=== PATIENT | female | born 1955 | race Caucasian/White ===

== ENCOUNTER → 2016-10-27 | Outpatient (CLI) | payer OTHER ==
[~2016-10-27] VITALS: Ht 172.7 cm; Wt 97.5 kg
[~2016-10-27] MED LIST: ASPIR 8181 M1 PO; CALCIUM 500 +1 EAC5 PO; FISH OIL 1,001000 M2 PO; LEVOTHYROXINE0.05 MG PO; LIPITOR 20 MG T20 M1 PO; LISINOPRIL10 MG PO; VITAMIN E400 UNIT PO
--- NOTE | ~2016-10-27 | P ---
[facility] [place] [address] PROCEDURE REPORT Name: CLEMENT JACOBSON Room #: REG [facility]#: [id number] Admission: 10/27/16 Attend Phys: Chemo Pelaez Discharge: Date of : 51 Report #: [id number] THIS REPORT FOR: //name// CC: Chemo Harrison DO DATE OF SERVICE: 10/27/2016 DATE OF PROCEDURE: 10/27/2016. PROCEDURE PERFORMED: Colonoscopy with polypectomies. HISTORY OF PRESENT ILLNESS: The patient is a 61-year-old female who presents today for a routine screening colonoscopy. She denies any symptoms. No previous history of endoscopy, no family history of colon cancer. DESCRIPTION OF PROCEDURE: The risks and benefits of the procedure were explained to the patient, those risks including but not limited to bleeding, perforation, the risk of sedation. She understood these risks and gave informed consent. Sedation was given using propofol per anesthesia. Next, a digital rectal exam was initially performed, which was normal. Next, using a standard Fujinon colonoscope, the scope was placed in the patient's anus and advanced under direct vision to the cecum. The overall prep was excellent. In the cecum, there was a 3 mm sessile polyp. This was removed with cold forceps, otherwise normal, ileocecal valve, a 4 mm sessile polyp also removed with cold forceps. In the ascending colon, there was a 5 mm sessile polyp. This was removed with cold forceps. In the transverse colon, a 6 mm sessile polyp, this was removed by snare cautery. The descending colon was normal. Multiple small diverticula were noted in the sigmoid colon, no evidence of inflammation, otherwise normal. The rectal mucosa was normal. On retroflexion, no abnormalities were noted. The scope was then withdrawn and the procedure terminated. The patient tolerated the procedure well. IMPRESSION: 1. Multiple small colonic polyps as described above. 2. Sigmoid diverticulosis. 3. Otherwise, normal colonoscopy. RECOMMENDATIONS: 1. Await biopsy results. 2. If polyps are hyperplastic, repeat in 10 years; if adenomatous polyp, repeat in [address] [address] PROCEDURE REPORT Name: CLEMENT JACOBSON Room #: REG [facility]#: [id number] Admission: 10/27/16 Attend Phys: Chemo Pelaez Discharge: Date of : 51 Report #: [id number] Thank you for allowing me to participate in her care. <ELECTRONICALLY SIGNED> By: Chemo Frausto MD 10/30/16 1400 [id number] Chemo Frausto MD /nt
--- NOTE | ~2016-10-27 | S ---
[facility] [place] [address] SURGICAL PATH RPT PROCEDURE Name: CELY JACOBSON Room #: REG [facility].#: [id number] Admission: 10/27/16 Date of : 51 Discharge: Report #: [id number] Path Case #: [id number] PATHOLOGY REPORT COLLECTION DATE: 10/27/2016 RECEIVED DATE: 10/27/2016 SUBMITTING PHYS: Dr. Chemo Frausto OTHER PHYS: Dr. Danisha Harrison D.O. SPECIMEN(S) RECEIVED: A.Polyp at transverse colon B.Bx of cecum C.Polyp at ileocecal valve D.Polyp at ascending colon * * * * * * * * * * * * FINAL DIAGNOSIS: A. Polyp, transverse colon polyp, endoscopic biopsy: - Tubular adenoma. - Negative for high-grade dysplasia. B. Large intestine, cecum, endoscopic biopsy: - Minute tubular adenoma/crypt adenoma. - Large lymphoid aggregate in a background of reactive changes. - Negative for high-grade dysplasia within the adenoma. C. Polyp, at ileocecal valve, endoscopic biopsy: - Tubular adenoma. - Negative for high-grade dysplasia. D. Polyp, at ascending colon, endoscopic biopsy: - Compatible with hyperplastic polyp. - Negative for dysplasia. PATHOLOGIST: Catie Martel M.D. REPORT ELECTRONICALLY SIGNED BY: aCtie Martel M.D. DATE/TIME: 10/30/2016 17:08 * * * * * * * * * * * * GROSS PATHOLOGY: A. Received in formalin labeled "Cely Herring, polyp at transverse colon," is a segment of cabrera soft tissue measuring 0.6 cm in maximum dimension. The specimen is submitted entirely in cassette A1. B. Received in formalin labeled "Cely Herring, biopsy of cecum," is a segment of cabrera soft tissue measuring 0.4 cm in maximum dimension. The specimen is submitted entirely in cassette B1. C. Received in formalin labeled "Cely Herring, polyp at ileocecal valve," are 2 segments of cabrera soft tissue measuring 0.[address] [address] SURGICAL PATH RPT PROCEDURE Name: CELY JACOBSON Room #: REG [facility].#: [id number] Admission: 10/27/16 Date of : 51 Discharge: Report #: [id number] Path Case #: [id number] 0.3 x 0.2 cm in aggregate dimensions and measuring 0.3 cm each in maximum dimension. The specimen is submitted entirely in cassette C1. D. Received in formalin labeled "Cely Herring, polyp at ascending colon," are 2 segments of cabrera soft tissue measuring 0.6 x 0.3 x 0.2 cm in aggregate dimensions and ranging from 0.3 to 0.4 cm in maximum dimension. The specimen is submitted entirely in cassette D1. (KAH; 10/28/2016) CLINICAL HISTORY: Pre-op diagnosis: Screening Post-op diagnosis: Colon polyps and diverticulosis INITIAL CPT CODE(S): A; 69849 B; 02107 C; 39493 D; 25203 Professional services performed by [facility] at [facility] [address], [place] [address] Technical services performed by [facility] at [address] [place] [address], [address], [place] [address]. [facility] [address] [place] [address] PHONE: [phone] DIRECTOR: Primo Crow M.D. * * * END OF REPORT * * *
== END | disposition home or self-care (01) ==
LOC: GI 06:50
DX: Z12.11 Encounter for screening for malignant neoplasm of colon (principal); D12.0 Benign neoplasm of cecum; D12.2 Benign neoplasm of ascending colon; D12.3 Benign neoplasm of transverse colon; K57.30 Diverticulosis of large intestine without perforation or abscess without bleeding; I10 Essential (primary) hypertension; E78.00 Pure hypercholesterolemia, unspecified; Z90.49 Acquired absence of other specified parts of digestive tract; E03.9 Hypothyroidism, unspecified; Z98.890 Other specified postprocedural states
CPT/HCPCS: 62110; 62900